=== PATIENT | male | born 1960 | race Caucasian/White ===

== ENCOUNTER 2016-07-04 05:42 | Outpatient (CLI) ==
[2015-04-11 12:19] VITALS: BMI 30.5
== END 2016-07-04 05:43 ==
LOC: AMBL 05:42
PROVIDERS: ATTEND Family Medicine
DX: R41.0 Disorientation, unspecified (principal); T42.4X5A Adverse effect of benzodiazepines, initial encounter

== ENCOUNTER 2017-08-19 06:12 | Day surgery (SDC) ==
[2015-04-11 12:19] VITALS: BMI 30.5
[2017-08-19] MEDS ORDERED: LIDOCAINE 1% 20 ML MDV ID STA (06:55)
[2017-08-19] MEDS ORDERED: LIDOCAINE HCL 2% LUER-JET ONE (08:00)
[2017-08-19] MEDS ORDERED: VERSED ONE (08:00)
[2017-08-19] MEDS ORDERED: DIPRIVAN 20 ML VIAL IVP ONE (08:00)
[2017-08-19] MEDS ORDERED: SUBLIMAZE ONE (08:00)
[2017-08-19 09:00] VITALS: BP 122/67; TEMP 98.7
--- NOTE | 2017-08-20 06:47 | OP ---
PROCEDURE: EGD (ESOPHAGOGASTRODUODENOSCOPY) WITH BIOPSY. ENDOSCOPIST: Esther BUSH M.D. INDICATION: JAMA'S. INSTRUMENT: GIFH-190. MEDICATION: PER ANESTHESIA. PROCEDURE: The patient was positioned for endoscopy. The oropharynx was sprayed with Cetacaine spray and the endoscope was advanced through the bite block into the esophagus and from there advanced to the duodenum. The duodenum was normal. The pylorus was widely patent. The antrum was normal. Retroflex exam reveals a moderate sized hiatal hernia. The patient has long segment Jama's. Biopsies were obtained at 32, 30 and 28 cm from the incisors. Four quadrant biopsies were obtained. There was no obvious nodularity , ulceration or other suspicious areas. The remaining esophagus was normal. PLAN: 1. Review pathology 2. Continue his proton pump inhibitor 3. Further recommendations after pathology reviewed CC: DR. BRUCE MONDRAGON
--- NOTE | 2017-08-20 06:50 | OP ---
PROCEDURE: COLONOSCOPY TO THE CECUM WITH SNARE POLYPECTOMY. ENDOSCOPIST: Esther BUSH M.D. INDICATION: HISTORY OF POLYPS. INSTRUMENT: [place]-190. MEDICATION: PER ANESTHESIA. PROCEDURE: The patient was positioned for colonoscopy. The digital rectal exam was negative. The colonoscope was inserted through the anus and advanced to the cecum. The cecum was identified using the ileocecal valve and the appendiceal orifice as landmarks. The [place] Bowel Prep score was 3 + 3 + 3 = 9. The exam was notable for small polyps in the rectum. These all were consistent with hyperplastic tissue. Random sampling was obtained removing three polyps using cold snare polypectomy. Retroflex exam was otherwise normal. Withdrawal time 11 minutes and 25 seconds. PLAN: 1. Review pathology, anticipate repeat colonoscopy in 5 years. CC: DR. BRUCE MONDRAGON
== END 2017-08-19 09:00 | disposition home or self-care (01) ==
LOC: SURG 06:12
PROVIDERS: ATTEND Internal Medicine Gastroenterology
DX: Z09 Encounter for follow-up examination after completed treatment for conditions other than malignant neoplasm (principal); Z86.010 Personal history of colon polyps; D13.0 Benign neoplasm of esophagus; K63.5 Polyp of colon; K22.70 Barrett's esophagus without dysplasia; K44.9 Diaphragmatic hernia without obstruction or gangrene

== ENCOUNTER 2018-06-25 14:19 | Outpatient (POV) | payer OTHER ==
[2015-04-11 12:19] VITALS: BMI 30.5
== END 2018-06-25 17:00 ==
LOC: OUTPT 14:19
PROVIDERS: ATTEND Otolaryngology
DX: H91.90 Unspecified hearing loss, unspecified ear (principal)
CPT/HCPCS: 92557; 92567

== ENCOUNTER 2020-10-14 07:49 | Observation (INO) ==
[2020-10-14] MEDS ORDERED: ROCEPHIN 1 GM/50 ML D5W 1 GM/50 ML BAG IV ONE (08:03)
[2020-10-14] MEDS ORDERED: SODIUM CHLORIDE 1,000 ML IV STA ×2 (08:03→09:28)
[2020-10-14] MEDS ORDERED: TYLENOL PO STA (08:09)
[2020-10-14] MEDS ORDERED: VENTOLIN HFA (PER PUFF-WITH SPACER) IH ONE (08:21)
[2020-10-14] MEDS ORDERED: ATROVENT HFA INHALER (PER PUFF-WITH SPACER) IH ONE (08:21)
[2020-10-14] MEDS ORDERED: SOLU-MEDROL 125 MG IVP ONE (08:21)
[2020-10-14 08:29] LABS: ABG O2 HGB 93.7 % (95-100); ABG PH 7.47 (7.35-7.45); BASOPHILS % (AUTO) 0.3 % (0.0-3.0); BEecf 4.7 (-2.0-3.0); COHb 1.3 (0.5-1.5); EOSINOPHILS # (AUTO) 0.2 K/ul (0.0-0.7); EOSINOPHILS % (AUTO) 1.9 % (0.0-7.0); HCO3 28.4 (21-28); HEMATOCRIT 30.7 % (42.0-52.0); HEMOGLOBIN 9.9 g/dl (14.0-18.0); IMMATURE GRANULOCYTE # (AUTO) 0.1 (0.0-1.0); IMMATURE GRANULOCYTE % (AUTO) 0.5 % (0.0-5.0); LYMPHOCYTES # (AUTO) 0.6 K/uL (0.60-3.4); LYMPHOCYTES % (AUTO) 5.1 (10.0-50.0); MEAN CORPUSCULAR HGB CONC 32.2 (31.8-35.4); MONOCYTES # (AUTO) 0.7 K/uL (0.4-2.0); MONOCYTES % (AUTO) 5.9 (0-10); NEUTROPHILS # (AUTO) 10.3 K/ul (2.0-6.9); NEUTROPHILS % (AUTO) 86.3 % (42.2-75.2); PLATELET COUNT 295 10^3/uL (140-440); RDW COEFFICIENT OF VARIATION 14.8 % (11.6-14.8); RED BLOOD COUNT 3.53 10^6/ul (4.70-6.10); TCO2 29.6 (19-24); WHITE BLOOD COUNT 11.98 K/ul (4.2-10.2); sO2 96.5 % (94-98); tHb 10.2 g/dl (11.7-17.4)
[2020-10-14 08:43] LABS: ALBUMIN 3.93 g/dL (3.5-5.0); ALKALINE PHOSPHATASE 92.4 U/L (56-119); ASPARTATE AMINO TRANSFERASE 29.2 U/L (17-59); BILIRUBIN,TOTAL 0.39 mg/dL (0.2-1.3); BLOOD UREA NITROGEN 17.5 mg/dL (9-20); CALCIUM 8.54 mg/dL (8.4-10.2); CARBON DIOXIDE 26.8 mmol/L (22-30.0); CREATININE 0.9 mg/dL (0.60-1.10); GLUCOSE 147.4 mg/dL (74-106); POTASSIUM 4.37 mmol/L (3.5-5.1); SODIUM 136.1 mmol/L (134.5-145); TOTAL PROTEIN 6.98 g/dL (6.3-8.2)
[2020-10-14 08:54] LABS: TROPONIN I 0.062 ng/ml (0.0000-0.120)
[2020-10-14 09:03] LABS: BILIRUBIN,URINE Negative (NEGATIVE); CLARITY,URINE Clear (CLEAR); COLOR,URINE Yellow (YELLOW); GLUCOSE, URINE (UA) Negative (NEGATIVE); KETONES,URINE Negative (NEGATIVE); LEUKOCYTE ESTERASE ,URINE Negative (NEGATIVE); NITRITE,URINE Negative (NEGATIVE); PROTEIN,URINE Negative (NEGATIVE); URINE, BLOOD Negative (NEGATIVE); UROBILINOGEN,URINE 0.2 (0.2)
--- NOTE | 2020-10-14 09:49 | CT ---
EXAM: CT THORAX HISTORY: Chest pain, fever, shortness of breath. TECHNIQUE: CT thorax without intravenous contrast. Multiplanar images presented. COMPARISON: None FINDINGS: Heart size is upper limit normal. No pericardial effusion is seen. There is at least mild atheroscl erotic disease. The ascending aortic caliber is aneurysmal at 3.7 cm. Limited evaluation of the medi astinum and hilar structures without the administration of intravenous contrast agent. There are mul tiple mediastinal and supraclavicular lymph nodes some which are prominent measuring up to about 9 mm short axis. These are nonspecific. There is a small paraesophageal hernia. The left lung reveals moderate patchy and nodular infiltrates in both the upper and lower lobes. Min imal if any infiltrate is seen in the right lung. There may be a mild right base atelectasis. Incid ental note of a right lower lobe nodule measuring up to 6.9 mm, coronal image 70. No central vascula r congestion, pleural fluid or pneumothorax. The bones reveal no acute abnormality. There is exaggerated thoracic kyphosis. A spinal stimulator is seen superimposed posterior to the mid thoracic spine. Incidental note of prominent liver size an d a few tiny gallstones. IMPRESSION: 1. The left lung reveals moderate patchy and nodular infiltrates in both the upper and lower lobes c onsistent with pneumonia. Minimal if any infiltrate is seen in the right lung. There may be a mild right base atelectasis. 2. There is a 6.9 mm indeterminate nodule in the right lower lobe. 3. Aneurysmal caliber of the ascending aorta at 3.7 cm. 4. Prominent supraclavicular and mediastinal lymph nodes are nonspecific. 5. Tiny gallstones are noted.. 7. Follow-up CT chest is recommended. All CT scans are performed using dose optimization techniques as appropriate to the performed exam an d include at least one of the following: Automated exposure control, adjustment of the mA and/or kV according t o size, and the use of iterative reconstruction technique.
[2020-10-14] MEDS ORDERED: ZITHROMAX PO ONE (09:58)
[2020-10-14] MEDS ORDERED: TYLENOL PO PRN (10:19)
[2020-10-14] MEDS ORDERED: XANAX PO PRN (10:27)
[2020-10-14] MEDS ORDERED: ELAVIL PO PRN (10:27)
[2020-10-14] MEDS ORDERED: TESSALON PERLES PO PRN (10:33)
[2020-10-14] MEDS ORDERED: MIRALAX PO PRN (10:33)
[2020-10-14] MEDS ORDERED: FLEXERIL PO PRN (10:33)
[2020-10-14] MEDS ORDERED: MEDROL DOSEPAK PO SCH (11:00)
[2020-10-14 11:06] VITALS: BMI 26.6
--- NOTE | 2020-10-14 12:09 | ED.PDOC ---
General ED Provider: Dr. MEMO GRACE MD Chief Complaint: Cough Stated Complaint: cough, fever and wheezing x 2 days. Time Seen by Provider: 10/14/20 09:58 Mode of Arrival: Wheelchair Information Source: Patient Exam Limitations: No limitations Primary Care Provider: STEVEN BARRERA Nursing and Triage Documentation Reviewed and Agree: Yes Does patient meet sepsis criteria?: Yes If yes, has appropriate treatment been initiated?: Yes System Inflammatory Response Syndrome: Temp 101F or Greater and Pulse >90 BPM Sepsis Protocol: For patient's 13 years and over: Temp is 96.8 and below OR 101 and greater Pulse >90 BPM Resp >20/minute Acutely Altered Mental Status Are patient's symptoms suggestive of a new infection, such as: -Pneumonia -Skin, Soft Tissue -Endocarditis -UTI -Bone, Joint Infection -Implantable Device -Acute Abdominal Infection -Wound Infection -Meningitis -Blood Stream Catheter Infection -Unknown Respiratory Complaint Exam Respiratory Complaint/Exam Onset/Duration: 1 day ago Timing: Constant Initial Severity: Moderate Current Severity: Moderate Location: Chest Character: Reports Non-productive cough and Bronchospastic cough Aggravating: Reports None Alleviating: Reports OTC Meds Associated Signs and Symptoms: Reports Fever, Chills, Wheezing and URI History of Healthcare-Acquired Pneumonia: No Cardiac Risk Factors: Reports Diabetes Status Asthmaticus Risk Factors: Reports None Home Oxygen Use: No Recent Stress Test: No Recent Echo/LV Function: No Current Antibiotic Use: No Current Asthma Medication Use: No Respiratory Distress: None Dysphagia Present: No Stridor Present: No JVD Present: No Accessory Muscle Use: No Retractions: Not Present Diminished Breath Sounds: No Sinus Tenderness: None Grunting Respirations: No Kussmaul Respirations: No Differential Diagnoses: Asthma, COPD Exacerbation, Pneumonia, Bronchitis, Bronchospasm, URI and Lower Resp. Infection Review of Systems Review Of Systems Constitutional: Reports No symptoms, Chills and Fever Eyes: Reports No symptoms Ears, Nose, Mouth, Throat: Reports No symptoms Respiratory: Reports Cough and Wheezing Cardiac: Reports No symptoms GI: Reports No symptoms : Reports No symptoms Musculoskeletal: Reports No symptoms Skin: Reports No symptoms Neurological: Reports No symptoms Endocrine: Reports No symptoms Hematologic/Lymphatic: Reports No symptoms All Other Systems: Reviewed and Negative [facility] Medical History Anxiety Arthritis Depression Diabetes mellitus Gastroesophageal reflux disease Family History Mother Diabetes Stroke FATHER Hypertension Brain aneurysm BROTHER No problems noted. Surgical History Previous back surgery Physical Exam Physical Exam Appearance: Reports Ill-appearing Ill-appearing: Mild Pain Distress: None Eyes: Reports STAN, EOMI and Conjunctiva clear ENT: Reports Ears normal, Nose normal and Oropharynx normal Neck: Supple Respiratory: Reports Airway patent, Breath sounds equal, Crackles, Rhonchi and Wheezes Cardiovascular: Reports RRR, Pulses normal, No rub and No murmur GI/: Reports Soft, Nontender and Bowel sounds normal Musculoskeletal: Reports Normal strength, ROM intact and No edema Skin: Reports Warm, Dry and Normal color Neurological: Reports Sensation intact, Motor intact, Reflexes intact, Cranial nerves intact, Alert and Oriented Psychiatric: Reports Affect appropriate and Mood appropriate Interpretation Radiology Interpretation Radiology Interpretation By: Radiologist Exam Interpreted: CT Scan Xray Comments: right pneumonia Re-Evaluation Re-Evaluation Time of Re-Evaluation: 11:02 Status: Improved Vital Signs Stable: Yes Lungs: Other (posterior crackles.) Skin: Warm and Dry Neuro: Alert and Oriented X3 CV: RRR Critical Care Note Critical Care Note Total Critical Care Time (mins): 30 Course Course Hematology/Chemistry: 10/14/20 08:25 10/14/20 08:25 Orders, Labs, Meds: Lab Review 10/14/20 10/14/20 10/14/20 08:25 08:25 08:25 WBC 11.98 H RBC 3.53 L Hgb 9.9 L Hct 30.7 L MCV 87.0 MCH 28.0 MCHC 32.2 RDW Coeff of Christiano 14.8 Plt Count 295 Immature Gran % (Auto) 0.5 Neut % (Auto) 86.3 H Lymph % (Auto) 5.1 L Spink % (Auto) 5.9 Eos % (Auto) 1.9 Baso % (Auto) 0.3 Neut # (Auto) 10.3 H Lymph # (Auto) 0.6 Spink # (Auto) 0.7 Eos # (Auto) 0.2 Baso # (Auto) 0.0 Immature Gran # (Auto) 0.1 Puncture Site L brach Base Excess 4.7 H O2 Saturation 96.5 ABG pH 7.47 H ABG pCO2 39.0 ABG pO2 80.0 L ABG HCO3 28.4 H ABG Total CO2 29.6 H Cristiano Test Y Hemoglobin 1.0 Oxyhemoglobin 93.7 L Carboxyhemoglobin 1.3 Total Hemoglobin 10.2 L FiO2 % 21.0 Sodium 136.1 Potassium 4.37 Chloride 101.0 Carbon Dioxide 26.8 Anion Gap 12.67 BUN 17.5 Creatinine 0.90 Estimated GFR (MDRD) 86.00 BUN/Creatinine Ratio 19.44 Glucose 147.4 H Lactic Acid Calcium 8.54 Total Bilirubin 0.39 AST 29.2 ALT 25.0 Alkaline Phosphatase 92.4 Troponin I 0.062 Total Protein 6.98 Albumin 3.93 Globulin 3.05 Albumin/Globulin Ratio 1.28 Procalcitonin Urine Color Urine Clarity Urine pH Ur Specific [place] Urine Protein Urine Glucose (UA) Urine Ketones Urine Blood Urine Nitrite Urine Bilirubin Urine Urobilinogen Ur Leukocyte Esterase SARS-CoV-2 Ag (Rapid) 10/14/20 10/14/20 10/14/20 08:25 08:25 08:25 WBC RBC Hgb Hct MCV MCH MCHC RDW Coeff of Christiano Plt Count Immature Gran % (Auto) Neut % (Auto) Lymph % (Auto) Spink % (Auto) Eos % (Auto) Baso % (Auto) Neut # (Auto) Lymph # (Auto) Spink # (Auto) Eos # (Auto) Baso # (Auto) Immature Gran # (Auto) Puncture Site Base Excess O2 Saturation ABG pH ABG pCO2 ABG pO2 ABG HCO3 ABG Total CO2 Cristiano Test Hemoglobin Oxyhemoglobin Carboxyhemoglobin Total Hemoglobin FiO2 % Sodium Potassium Chloride Carbon Dioxide Anion Gap BUN Creatinine Estimated GFR (MDRD) BUN/Creatinine Ratio Glucose Lactic Acid 2.28 H Calcium Total Bilirubin AST ALT Alkaline Phosphatase Troponin I Total Protein Albumin Globulin Albumin/Globulin Ratio Procalcitonin 0.34 Urine Color Urine Clarity Urine pH Ur Specific [place] Urine Protein Urine Glucose (UA) Urine Ketones Urine Blood Urine Nitrite Urine Bilirubin Urine Urobilinogen Ur Leukocyte Esterase SARS-CoV-2 Ag (Rapid) Negative 10/14/20 08:55 WBC RBC Hgb Hct MCV MCH MCHC RDW Coeff of Christiano Plt Count Immature Gran % (Auto) Neut % (Auto) Lymph % (Auto) Spink % (Auto) Eos % (Auto) Baso % (Auto) Neut # (Auto) Lymph # (Auto) Spink # (Auto) Eos # (Auto) Baso # (Auto) Immature Gran # (Auto) Puncture Site Base Excess O2 Saturation ABG pH ABG pCO2 ABG pO2 ABG HCO3 ABG Total CO2 Cristiano Test Hemoglobin Oxyhemoglobin Carboxyhemoglobin Total Hemoglobin FiO2 % Sodium Potassium Chloride Carbon Dioxide Anion Gap BUN Creatinine Estimated GFR (MDRD) BUN/Creatinine Ratio Glucose Lactic Acid Calcium Total Bilirubin AST ALT Alkaline Phosphatase Troponin I Total Protein Albumin Globulin Albumin/Globulin Ratio Procalcitonin Urine Color Yellow Urine Clarity Clear Urine pH 7.0 Ur Specific [place] 1.020 Urine Protein Negative Urine Glucose (UA) Negative Urine Ketones Negative Urine Blood Negative Urine Nitrite Negative Urine Bilirubin Negative Urine Urobilinogen 0.2 Ur Leukocyte Esterase Negative SARS-CoV-2 Ag (Rapid) Orders Category Date Time Status ABG DRAW REQUEST Stat CARDIO 10/14/20 08:05 Completed EKG-(ED ONLY) Stat CARDIO 10/14/20 08:03 Completed METERED DOSE INHALATION Routine CARDIO 10/14/20 08:22 Completed METERED DOSE INHALATION Routine CARDIO 10/14/20 10:21 Active OXYGEN Routine CARDIO 10/14/20 10:14 Active SPUTUM INDUCTION PRN CARDIO 10/14/20 10:15 Ordered ACTIVITY .Up in Chair CARE 10/14/20 10:14 Active INTAKE & OUTPUT Q8HR CARE 10/14/20 10:14 Active REMINDER: Notify Provider if temp >101.5 PRN CARE 10/14/20 10:14 Active REMINDER:Breath Sounds&Sputum Production BID CARE 10/14/20 10:14 Active REMINDER:Notify Provider Pulse<60 or>130 PRN CARE 10/14/20 10:14 Active REMINDER:Notify if BP<90/60 or >170/110 PRN CARE 10/14/20 10:14 Active VITAL SIGNS Q8HR CARE 10/14/20 10:14 Completed REGULAR DIET DIETARY 10/14/20 Lunch Ordered ED IV/MEDIPORT/POWERPORT .ONCE EMERGENCY 10/14/20 08:03 Active ABG COOX PRN LAB 10/14/20 10:15 Ordered ABG COOX Stat LAB 10/14/20 08:25 Completed BLOOD CULTURE (ED ONLY) Stat LAB 10/14/20 08:42 Received CBC W/ AUTO DIFF Stat LAB 10/14/20 08:25 Completed COMPREHENSIVE METABOLIC PANEL Stat LAB 10/14/20 08:25 Completed COVID-19 ANTIGEN TEST Stat LAB 10/14/20 08:25 Completed LACTIC ACID Stat LAB 10/14/20 08:25 Completed PROCALCITONIN Stat LAB 10/14/20 08:25 Completed SPUTUM CULTURE Stat LAB 10/14/20 10:14 Uncollected TROPONIN I Stat LAB 10/14/20 08:25 Completed URINALYSIS C & S IF INDICATED Stat LAB 10/14/20 08:55 Completed 0.9 % Sodium Chloride [Saline Flush] MEDS 10/14/20 08:03 Active 1 syr IVF PRN PRN Acetaminophen [Tylenol] MEDS 10/14/20 08:09 Discontinued 650 mg PO ONCE STA Acetaminophen [Tylenol] MEDS 10/14/20 10:19 Active 650 mg PO Q8H PRN Albuterol Inhaler(with Spacer) [Ventolin Hfa (Per Puff- MEDS 10/14/20 08:21 Discontinued with Spacer)] 2 puff IH ONCE ONE Albuterol Inhaler(with Spacer) [Ventolin Hfa (Per Puff- MEDS 10/14/20 14:00 Active with Spacer)] 2 puff IH RTQID Azithromycin [Zithromax] MEDS 10/14/20 09:58 Discontinued 500 mg PO ONCE ONE Ceftriaxone/D5w 1 gm Premix [Rocephin 1 gm/50 ml D5w] MEDS 10/15/20 09:00 Active 1 gm in 50 ml IV DAILY Ceftriaxone/D5w 1 gm Premix [Rocephin 1 gm/50 ml D5w] MEDS 10/14/20 08:03 Discontinued 1 gm in 50 ml IV ONCE Ipratropium Inhaler(Spacer) [Atrovent Hfa Inhaler (Per MEDS 10/14/20 08:21 Discontinued Puff-with Spacer)] 2 puff IH ONCE ONE Ipratropium Inhaler(Spacer) [Atrovent Hfa Inhaler (Per MEDS 10/14/20 14:00 Active Puff-with Spacer)] 2 puff IH RTQID Methylprednisolone Sod Succ/Pf [Solu-Medrol 125 mg] MEDS 10/14/20 08:21 Discontinued 125 mg IVP ONCE ONE Sodium Chloride 0.9% [Sodium Chloride] 1,000 ml MEDS 10/14/20 10:30 Active IV 100 mls/hr Sodium Chloride 0.9% [Sodium Chloride] 1,000 ml MEDS 10/14/20 09:28 Active IV 125 mls/hr Sodium Chloride 0.9% [Sodium Chloride] 1,000 ml MEDS 10/14/20 08:[address] CHEST W/O CONTRAST Stat RADS 10/14/20 08:03 Completed Medications Generic Name Dose Route Start Last Admin Trade Name Freq PRN Reason Stop Dose Admin Acetaminophen 650 mg 10/14/20 10:19 Acetaminophen 325 Mg Tablet PO Q8H PRN Mild/Moderate Pain Albuterol Sulfate 2 puff 10/14/20 14:00 Albuterol Sulfate (Ventolin Hfa) 18 Gm 1 Puff With Spacer IH RTQID JEISON Alprazolam 0.5 mg 10/14/20 10:27 Alprazolam 0.5 Mg Tablet PO BEDTIME PRN Anxiety Amitriptyline HCl 225 mg 10/14/20 21:00 Amitriptyline Hcl 25 Mg Tablet PO BEDTIME JEISON Azithromycin 500 mg 10/15/20 09:00 Azithromycin 250 Mg Tablet PO 10/17/20 08:59 DAILY [facility] Benzonatate 200 mg 10/14/20 10:33 Benzonatate 100 Mg Capsule PO TID PRN Cold Symptons Buspirone HCl 10 mg 10/14/20 21:00 Buspirone Hcl 10 Mg Tablet PO BID JEISON Cyclobenzaprine HCl 10 mg 10/14/20 10:33 Cyclobenzaprine Hcl 10 Mg Tablet PO DAILY PRN Spasms Fluoxetine HCl 40 mg 10/15/20 09:00 Fluoxetine Hcl 20 Mg Capsule PO DAILY JEISON Sodium Chloride 1,000 mls @ 125 mls/hr 10/14/20 09:28 10/14/20 09:30 Sodium Chloride IV 10/14/20 17:27 125 mls/hr .Q8H STA Administration Sodium Chloride 1,000 mls @ 100 mls/hr 10/14/20 10:30 Sodium Chloride IV .Q10H JEISON CEFTRIAXONE/D5W 1 GM PREMIX 1 gm in 50 mls @ 75 mls/hr 10/15/20 09:00 Rocephin 1 Gm/50 Ml D5w IV 10/18/20 08:59 DAILY [facility] Ipratropium [place] 2 puff 10/14/20 14:00 Ipratropium [place] 12.9 Gm Hfa Inhaler Per Puff With Spacer IH RTQID [facility] Lovastatin 10 mg 10/14/20 21:00 Lovastatin 20 Mg Tablet PO BEDTIME JEISON Metformin HCl 1,000 mg 10/14/20 17:00 Metformin Hcl 500 Mg Tablet PO BIDWM JEISON Methylprednisolone 0 mg 10/14/20 13:00 Methylprednisolone 4 Mg Tab.Ds.Pk PO 10/19/20 09:59 DIRECTED JEISON Taper Morphine Sulfate 60 mg 10/14/20 21:00 Morphine Sulfate 15 Mg Tablet.Er PO BID JEISON Oxycodone/Acetaminophen 1 tab 10/14/20 13:00 Oxycodone/Acetaminophen 10/325 Mg Tablet PO QID JEISON Pantoprazole Sodium 40 mg 10/15/20 06:30 Pantoprazole Sodium 40 Mg Tablet.Dr PO QDAC JEISON Polyethylene Glycol 17 gm 10/14/20 10:33 Polyethylene Glycol 17 Gm Powd.Pack PO PRN PRN Constipation Sodium Chloride 1 syr 10/14/20 08:03 10/14/20 08:27 0.9% Sodium Chloride 10 Ml Disp.Syrin IVF 1 syr PRN PRN Administration To flush IV Discontinued Medications Generic Name Dose Route Start Last Admin Trade Name Freq PRN Reason Stop Dose Admin Acetaminophen 650 mg 10/14/20 08:09 10/14/20 08:27 Acetaminophen 325 Mg Tablet PO 10/14/20 08:10 650 mg ONCE STA Administration Albuterol Sulfate 2 puff 10/14/20 08:21 10/14/20 08:48 Albuterol Sulfate (Ventolin Hfa) 18 Gm 1 Puff With Spacer IH 10/14/20 08:22 2 puff ONCE ONE Administration Amitriptyline HCl 75 - 225 mg 10/14/20 10:27 Amitriptyline Hcl 25 Mg Tablet PO DAILY PRN Insomnia Azithromycin 500 mg 10/14/20 09:58 10/14/20 10:02 Azithromycin 250 Mg Tablet PO 10/14/20 09:59 500 mg ONCE ONE Administration Sodium Chloride 1,000 mls @ 1,000 mls/hr 10/14/20 08:03 10/14/20 08:27 Sodium Chloride IV 10/14/20 09:02 1,000 mls/hr BOLUS STA Administration CEFTRIAXONE/D5W 1 GM PREMIX 1 gm in 50 mls @ 75 mls/hr 10/14/20 08:03 10/14/20 09:21 Rocephin 1 Gm/50 Ml D5w IV 10/14/20 08:42 75 mls/hr ONCE ONE Administration Ipratropium [place] 2 puff 10/14/20 08:21 10/14/20 08:48 Ipratropium [place] 12.9 Gm Hfa Inhaler Per Puff With Spacer IH 10/14/20 08:22 2 puff ONCE ONE Administration Methylprednisolone Sodium Succinate 125 mg 10/14/20 08:21 10/14/20 08:28 Methylprednisolone Sod Succ/Pf 125 Mg/2 Ml Vial IVP 10/14/20 08:22 125 mg ONCE ONE Administration Vital Signs: Temp Pulse Resp BP Pulse Ox 10/14/20 07:50 104.3 F H 109 H 18 133/77 92 L Discharge Plan Discharge Patient Disposition: PLACED OBSERVATION Discharge Problem: Pneumonia ED Provider: MEMO GRACE Condition: Good Physician Progress Note: []Pt was d/w Dr Barrera and admitted to Med-Surg. pt and family agreed to be admitted.
[2020-10-14] MEDS: PERCOCET 10-325 PO SCH ×3 (12:22→20:38)
[2020-10-14] MEDS: SODIUM CHLORIDE 1,000 ML IV SCH ×3 (12:24→18:11)
[2020-10-14] MEDS: MEDROL DOSEPAK PO SCH ×3 (12:25→20:38)
[2020-10-14] MEDS ORDERED: PERCOCET 10-325 PO SCH (13:00)
[2020-10-14] MEDS: ATROVENT HFA INHALER (PER PUFF-WITH SPACER) IH SCH ×2 (14:05→19:42)
[2020-10-14] MEDS: VENTOLIN HFA (PER PUFF-WITH SPACER) IH SCH ×2 (14:05→19:42)
[2020-10-14] MEDS: GLUCOPHAGE PO SCH (16:29)
[2020-10-14] MEDS: ELAVIL PO SCH (20:39)
[2020-10-14] MEDS: MS CONTIN PO SCH (20:39)
[2020-10-14] MEDS: LOVENOX SUBCUT SCH (20:40)
[2020-10-14] MEDS: MEVACOR PO SCH (20:40)
[2020-10-14] MEDS: BUSPAR PO SCH (20:40)
[2020-10-14] MEDS: HUMULIN R SUBCUT PRN (20:49)
[2020-10-14] MEDS ORDERED: METFORMIN 500 MG PO SCH (21:00)
[2020-10-15] MEDS: SODIUM CHLORIDE 1,000 ML IV SCH ×2 (04:13→15:29)
[2020-10-15] MEDS: VENTOLIN HFA (PER PUFF-WITH SPACER) IH SCH ×4 (05:06→19:22)
[2020-10-15] MEDS: ATROVENT HFA INHALER (PER PUFF-WITH SPACER) IH SCH ×4 (05:06→19:22)
[2020-10-15 05:13] LABS: BASOPHILS % (AUTO) 0.1 % (0.0-3.0); HEMATOCRIT 28.3 % (42.0-52.0); HEMOGLOBIN 9.2 g/dl (14.0-18.0); IMMATURE GRANULOCYTE # (AUTO) 0.1 (0.0-1.0); IMMATURE GRANULOCYTE % (AUTO) 0.8 % (0.0-5.0); LYMPHOCYTES # (AUTO) 1.3 K/uL (0.60-3.4); LYMPHOCYTES % (AUTO) 8.6 (10.0-50.0); MEAN CORPUSCULAR HEMOGLOBIN 28.3 pg (27.0-31.0); MEAN CORPUSCULAR HGB CONC 32.5 (31.8-35.4); MEAN CORPUSCULAR VOLUME 87.1 fl (80.0-94.0); MONOCYTES # (AUTO) 0.7 K/uL (0.4-2.0); MONOCYTES % (AUTO) 4.6 (0-10); NEUTROPHILS % (AUTO) 85.9 % (42.2-75.2); PLATELET COUNT 311 10^3/uL (140-440); RDW COEFFICIENT OF VARIATION 15.1 % (11.6-14.8); RED BLOOD COUNT 3.25 10^6/ul (4.70-6.10); WHITE BLOOD COUNT 15.17 K/ul (4.2-10.2)
[2020-10-15 05:27] LABS: ALANINE AMINOTRANSFERASE 20.8 U/L (0-50); ALBUMIN 3.58 g/dL (3.5-5.0); ALKALINE PHOSPHATASE 74.2 U/L (56-119); ASPARTATE AMINO TRANSFERASE 23.2 U/L (17-59); BILIRUBIN,TOTAL 0.3 mg/dL (0.2-1.3); BLOOD UREA NITROGEN 16.5 mg/dL (9-20); CALCIUM 8.72 mg/dL (8.4-10.2); CARBON DIOXIDE 28.5 mmol/L (22-30.0); CHLORIDE 106.3 mmol/L (98-107); CREATININE 0.74 mg/dL (0.60-1.10); GLUCOSE 127.8 mg/dL (74-106); POTASSIUM 4.45 mmol/L (3.5-5.1); SODIUM 139.8 mmol/L (134.5-145); TOTAL PROTEIN 6.58 g/dL (6.3-8.2)
[2020-10-15] MEDS: PROTONIX PO SCH (05:37)
[2020-10-15] MEDS: MEDROL DOSEPAK PO SCH ×4 (05:39→20:24)
[2020-10-15] MEDS: MS CONTIN PO SCH ×2 (08:24→20:22)
[2020-10-15] MEDS: PROZAC PO SCH (08:24)
[2020-10-15] MEDS: BUSPAR PO SCH ×2 (08:24→20:21)
[2020-10-15] MEDS: ROCEPHIN 1 GM/50 ML D5W 1 GM/50 ML BAG IV SCH (08:24)
[2020-10-15] MEDS: ZITHROMAX PO SCH (08:24)
[2020-10-15] MEDS: GLUCOPHAGE PO SCH ×2 (08:24→17:21)
[2020-10-15] MEDS: PERCOCET 10-325 PO SCH ×4 (08:25→20:22)
[2020-10-15] MEDS: LOVENOX SUBCUT SCH (08:29)
[2020-10-15] MEDS: MIRALAX PO SCH (08:38)
[2020-10-15] MEDS ORDERED: VILAZODONE 20 MG PO SCH (09:00)
[2020-10-15] MEDS ORDERED: ZITHROMAX 500 MG in SODIUM CHLORIDE 250 ML IV SCH (09:00)
[2020-10-15] MEDS: MEVACOR PO SCH (20:20)
[2020-10-15] MEDS: ELAVIL PO SCH (20:21)
[2020-10-15] MEDS: HUMULIN R SUBCUT PRN (20:25)
[2020-10-16] MEDS: SODIUM CHLORIDE 1,000 ML IV SCH (02:00)
[2020-10-16 05:15] LABS: BASOPHILS % (AUTO) 0.2 % (0.0-3.0); EOSINOPHILS % (AUTO) 0.3 % (0.0-7.0); HEMATOCRIT 29.6 % (42.0-52.0); HEMOGLOBIN 9.5 g/dl (14.0-18.0); IMMATURE GRANULOCYTE # (AUTO) 0.1 (0.0-1.0); IMMATURE GRANULOCYTE % (AUTO) 0.4 % (0.0-5.0); LYMPHOCYTES # (AUTO) 1.9 K/uL (0.60-3.4); LYMPHOCYTES % (AUTO) 16.7 (10.0-50.0); MEAN CORPUSCULAR HEMOGLOBIN 28.2 pg (27.0-31.0); MEAN CORPUSCULAR HGB CONC 32.1 (31.8-35.4); MEAN CORPUSCULAR VOLUME 87.8 fl (80.0-94.0); MONOCYTES # (AUTO) 0.6 K/uL (0.4-2.0); MONOCYTES % (AUTO) 5.6 (0-10); NEUTROPHILS # (AUTO) 8.8 K/ul (2.0-6.9); NEUTROPHILS % (AUTO) 76.8 % (42.2-75.2); PLATELET COUNT 325 10^3/uL (140-440); RDW COEFFICIENT OF VARIATION 15.4 % (11.6-14.8); RED BLOOD COUNT 3.37 10^6/ul (4.70-6.10); WHITE BLOOD COUNT 11.42 K/ul (4.2-10.2)
[2020-10-16] MEDS: ATROVENT HFA INHALER (PER PUFF-WITH SPACER) IH SCH ×3 (05:17→13:23)
[2020-10-16] MEDS: VENTOLIN HFA (PER PUFF-WITH SPACER) IH SCH ×3 (05:17→13:23)
[2020-10-16 05:30] LABS: ALANINE AMINOTRANSFERASE 21.6 U/L (0-50); ALBUMIN 3.67 g/dL (3.5-5.0); ALKALINE PHOSPHATASE 70.8 U/L (56-119); ASPARTATE AMINO TRANSFERASE 28.2 U/L (17-59); BILIRUBIN,TOTAL 0.29 mg/dL (0.2-1.3); BLOOD UREA NITROGEN 20.1 mg/dL (9-20); CALCIUM 8.69 mg/dL (8.4-10.2); CARBON DIOXIDE 30.5 mmol/L (22-30.0); CHLORIDE 104.6 mmol/L (98-107); CREATININE 0.8 mg/dL (0.60-1.10); POTASSIUM 4.51 mmol/L (3.5-5.1); SODIUM 139.3 mmol/L (134.5-145); TOTAL PROTEIN 6.87 g/dL (6.3-8.2)
[2020-10-16] MEDS: PROTONIX PO SCH (06:06)
[2020-10-16] MEDS: MEDROL DOSEPAK PO SCH ×2 (06:07→12:46)
[2020-10-16] MEDS: MIRALAX PO SCH (08:26)
[2020-10-16] MEDS: BUSPAR PO SCH (08:26)
[2020-10-16] MEDS: ZITHROMAX PO SCH (08:26)
[2020-10-16] MEDS: PROZAC PO SCH (08:26)
[2020-10-16] MEDS: GLUCOPHAGE PO SCH ×2 (08:26→17:04)
[2020-10-16] MEDS: PERCOCET 10-325 PO SCH ×3 (08:27→17:05)
[2020-10-16] MEDS: ROCEPHIN 1 GM/50 ML D5W 1 GM/50 ML BAG IV SCH (08:27)
[2020-10-16] MEDS: MS CONTIN PO SCH (08:27)
[2020-10-16] MEDS: LOVENOX SUBCUT SCH (08:28)
--- NOTE | 2020-10-16 09:42 | DI ---
EXAM: Two-view chest HISTORY: Follow up pneumonia TECHNIQUE: Frontal and lateral views of the chest were obtained. FINDINGS: The heart is normal size. Lungs are clear. The pulmonary vasculature appears normal. Th e costophrenic angles are sharp. The osseous structures and mediastinal contours are normal. IMPRESSION: No active cardiopulmonary disease.
[2020-10-16 14:14] VITALS: BP 155/96; TEMP 97.8
--- NOTE | 2021-01-03 09:56 | HP ---
DISCUSSION: This is a 59-year-old gentleman who has a history of chronic back pain who presented with productive cough, fever up to 101 and wheezing for two days prior to admission. He was seen in the Emergency Department with a 104 fever, was thought to be ill enough to require hospitalization. The patient was admitted to my services with antibiotics, updrafts and control of temperature. PAST MEDICAL HISTORY: MEDICATIONS: Alprazolam Amitriptyline Buspar Flexeril Fluoxetine Lovastatin Metformin Morphine Percocet Protonix ALLERGIES: NKDA PAST MEDICAL HISTORY: Chronic low back pain Anxiety Depression Hyperlipidemia Diabetes type 2 GERD PAST SURGICAL HISTORY: Back surgery SOCIAL HISTORY: No history of alcohol, tobacco or ilicit drug use. He is and has much family support. FAMILY HISTORY: Positive for diabetes as well as hypertension. REVIEW OF SYSTEMS: He has temperature up to 104, denies any vomiting. Denies chest pain except with cough. He has had some mild shortness of breath. Denies any abdominal pain, blood in the stool, urinary symptoms or seizures. PHYSICAL EXAMINATION: V/S: Temperature 104, pulse 100, respiratory rate 18, blood pressure 120/80. HEENT: Pupils are round. NECK: Supple. CHEST: Scattered rhonchi. CARDIOVASCULAR: Regular rate and rhythm. ABDOMEN: Soft, nontender. EXTREMITIES: Distal extremities without cyanosis or edema. ASSESSMENT: 1. Community acquired pneumonia. PLAN: 1. Antibiotics. 2. Bronchodilators. 3. Please see orders. MTDD
--- NOTE | 2021-01-03 09:59 | DS ---
PRINCIPAL DIAGNOSIS: 1. Community acquired pneumonia. 2. Chronic low back pain. DISCUSSION: This is a 59-year-old gentleman who has a history of chronic back pain who presented with productive cough, fever up to 101 and wheezing for two days prior to admission. He was seen in the Emergency Department with a 104 fever, was thought to be ill enough to require hospitalization. The patient was admitted to my services with antibiotics, updrafts and control of temperature. CLINICAL COURSE: The patient was admitted with IV antibiotics. He did rapidly defervese. His shortness of breath improved. Oximetry had improved. At this point the patient was transitioned from IV antibiotics to oral antibiotics and the patient was discharged and I will be seeing in the office in followup. ALANNA
== END 2020-10-16 17:40 | disposition home or self-care (01) ==
LOC: ED 07:49 → MEDSURG A 07:49
PROVIDERS: ADMIT Family Medicine; ATTEND Family Medicine
DX: R50.9 Fever, unspecified; R05 Cough; Z20.822 Contact with and (suspected) exposure to COVID-19; R06.2 Wheezing; M54.9 Dorsalgia, unspecified